=== PATIENT | female | born 1975 | race African-American/Black ===

== ENCOUNTER 2020-03-23 05:40 | Emergency (ER) | payer MEDICAID ==
[~2020-03-23] VITALS: Ht 167.6 cm; Wt 90.0 kg
[2020-03-23] MEDS ORDERED: CEFTRIAXONE SODIUM 250 MG/VIAL IM ONE (06:45)
[2020-03-23] MEDS ORDERED: AZITHROMYCIN 500 MG TABLET PO ONE (06:45)
[2020-03-23] MEDS ORDERED: METRONIDAZOLE 500MG TABLET PO ONE (07:00)
[2020-03-23] MEDS ORDERED: ONDANSETRON HCL 4MG TABLET PO ONE (07:00)
[2020-03-23 07:24] LABS: CLARITY URINE TURBID (CLEAR); COLOR URINE YELLOW (YELLOW); KETONES URINE NEGATIVE (NEGATIVE); LEUKOCYTE ESTERASE URINE 3+ (NEGATIVE); NITRITE URINE NEGATIVE (NEGATIVE); OCCULT BLOOD URINE 2+ (NEGATIVE); PH URINE 5.5 (4.5-8.0); PROTEIN URINE 1+ (NEGATIVE); SPECIFIC GRAVITY URINE 1.021 (1.005-1.030)
[2020-03-23 08:49] VITALS: BP 138/76
[2020-03-27 09:06] LABS: NEISSERIA GONORRHOEAE NAA Negative (Negative)
== END 2020-03-23 07:30 | disposition home or self-care (01) ==
LOC: ER 05:40
DX: N39.0 Urinary tract infection, site not specified (principal); A59.01 Trichomonal vulvovaginitis; I10 Essential (primary) hypertension; Z98.890 Other specified postprocedural states; Z88.0 Allergy status to penicillin
CPT/HCPCS: 81003; 81025; 87077; 87086; 87186; 87210; 87491; 87591; 96372; 99284; J0696